=== PATIENT | male | born 1950 ===

== ENCOUNTER 2018-12-21 13:40 | Emergency (ER) | payer MEDICARE ==
[2018-12-21] MEDS ORDERED: Bacitracin Oint 1 GM U/D Packet TOP ONE (14:32)
--- NOTE | 2018-12-21 14:41 | EDM.PDOC ---
ED HPI GENERAL MEDICAL PROBLEM - General Chief Complaint: Laceration Stated Complaint: CUT RT HAND Time Seen by Provider: 12/21/18 14:36 - History of Present Illness INITIAL COMMENTS - FREE TEXT/NARRATIVE: HISTORY AND PHYSICAL: History of present illness: Patient 68-year-old male presents with her laceration was left-handed security utility knife. He denies other tremor concern tenderness status to be determined Review of systems: As per history of present illness and below otherwise all systems reviewed and negative. Past medical history: As per history of present illness and as reviewed below otherwise noncontributory. Surgical history: As per history of present illness and as reviewed below otherwise noncontributory. Social history: No reported history of drug or alcohol abuse. Family history: As per history of present illness and as reviewed below otherwise noncontributory. Physical exam: HEENT: Atraumatic, normocephalic, pupils reactive, negative for conjunctival pallor or scleral icterus, mucous membranes moist, throat clear, neck supple, nontender, trachea midline. Lungs: Clear to auscultation, breath sounds equal bilaterally, chest nontender. Heart: S1S2, regular, negative for clicks, rubs, or JVD. Abdomen: Soft, nondistended, nontender. Negative for masses or hepatosplenomegaly. Negative for costovertebral tenderness. Pelvis: Stable nontender. Genitourinary: Deferred. Rectal: Deferred. Extremities: Patient has proximal 93 cm moderate laceration over the dorsal aspect of the base of his first digit on his left hand is no tendon involvement CMS and neurovascular exam is unremarkable. Neuro: Awake, alert, oriented. Cranial nerves II through XII unremarkable. Cerebellum unremarkable. Motor and sensory unremarkable throughout. Exam nonfocal. Diagnostics: None Therapeutics: Patient was anesthetized 1% lidocaine without epinephrine irrigated with copious amounts 0.9 normal saline prepped and draped in a sterile manner closed with 4-0 nylon interrupted suture bacitracin and occlusive dressing was applied Impression: #1 hand injury (laceration) Definitive disposition and diagnosis as appropriate pending reevaluation and review of above. - Related Data Allergies Allergy/AdvReac Type Severity Reaction Status Date / Time amoxicillin Allergy Rash Verified 07/20/14 13:44 Penicillins Allergy Rash Verified 12/21/18 13:58 Home Meds: Home Meds Fluticasone/Salmeterol [Advair 250-50 Diskus] 1 dose INH ASDIRECTED 12/21/18 [ History] Furosemide 20 mg PO ASDIRECTED 12/21/18 [History] Umeclidinium [place] [Incruse Ellipta*] 1 puff INH ASDIRECTED 12/21/18 [History] Past Medical History Respiratory History: Reports: COPD - Infectious Disease History Infectious Disease History: Reports: Chicken Pox, Measles, Mumps Social & Family History - Family History Family Medical History: Noncontributory - Tobacco Use Smoking Status *Q: Former Smoker Used Tobacco, but Quit: Yes Month/Year Tobacco Last Used: 3 years - Recreational Drug Use Recreational Drug Use: No ED ROS GENERAL - Review of Systems Review Of Systems: ROS reveals no pertinent complaints other than HPI. ED EXAM, SKIN/RASH Exam: See Below (dictation) Course - Vital Signs Last Recorded V/S: Last Vital Signs Temp 36.6 C 12/21/18 13:56 Pulse 56 L 12/21/18 13:56 Resp 22 H 12/21/18 13:56 BP 133/65 12/21/18 13:56 Pulse Ox 88 L 12/21/18 13:56 - Orders/Labs/Meds Meds: Medications Discontinued Medications Generic Name Dose Route Start Last Admin Trade Name Freq PRN Reason Stop Dose Admin Bacitracin 1 dose 12/21/18 14:32 12/21/18 14:37 Bacitracin Oint 1 Gm TOP 12/21/18 14:33 1 dose ONETIME ONE Administration Lidocaine HCl 10 ml 12/21/18 14:10 12/21/18 14:16 Xylocaine-Mpf 1% INJECT 12/21/18 14:11 10 ml ONETIME ONE Administration Departure - Departure Time of Disposition: 14:40 Disposition: Home, Self-Care 01 Condition: Good Clinical Impression: Hand injury, Laceration - Discharge Information Referrals: PCP,Unknown [Primary Care Provider] - Additional Instructions: The following information is given to patients seen in the emergency department who are being discharged to home. This information is to outline your options for follow-up care. We provide all patients seen in our emergency department with a follow-up referral. The need for follow-up, as well as the timing and circumstances, are variable depending upon the specifics of your emergency department visit. If you don't have a primary care physician on staff, we will provide you with a referral. We always advise you to contact your personal physician following an emergency department visit to inform them of the circumstance of the visit and for follow-up with them and/or the need for any referrals to a consulting specialist. The emergency department will also refer you to a specialist when appropriate. This referral assures that you have the opportunity for followup care with a specialist. All of these measure are taken in an effort to provide you with optimal care, which includes your followup. Under all circumstances we always encourage you to contact your private physician who remains a resource for coordinating your care. When calling for followup care, please make the office aware that this follow-up is from your recent emergency room visit. If for any reason you are refused follow-up, please contact the [facility] emergency department at and asked to speak to the emergency department charge nurse. Wound care is discussed follow-up for reevaluation 24-48 hours as needed as discussed suture removal 10-14 days return as needed as discussed
== END 2018-12-21 14:48 | disposition home or self-care (01) ==
LOC: MW.ED 13:40
DX: S61.412A Laceration without foreign body of left hand, initial encounter (principal); Z88.0 Allergy status to penicillin; Z88.1 Allergy status to other antibiotic agents; Z87.891 Personal history of nicotine dependence; W26.0XXA Contact with knife, initial encounter
CPT/HCPCS: 12001; 99282; J2001

== ENCOUNTER 2019-01-04 14:02 | Emergency (ER) | payer MEDICARE | END 2019-01-04 14:15 | disposition home or self-care (01) | LOC: MW.ED 14:02 | DX: Z53.21 Procedure and treatment not carried out due to patient leaving prior to being seen by health care provider (principal) ==